=== PATIENT | female | born 2000 | race Caucasian/White ===

== ENCOUNTER 2023-10-08 08:32 | Emergency (ER) | payer OTHER, SELFPAY ==
[2023-10-08 08:36] VITALS: BP 142/90
--- NOTE | 2023-10-08 08:57 | ED.GENMED ---
History of Present Illness
<Dariel Schulte PA-C - Last Filed: 10/08/23 08:59>
General
Chief Complaint: Urinary Symptoms
Source: patient
Exam Limitations: none
Time Seen by Provider: 10/08/23 08:41
Travel History
Have you had any contact with someone who has COVID-19?: No
Do you have any symptoms of coronavirus? Fever > 100 degrees, chills, cough, shortness of breath, sore throat, loss of taste or smell, muscle aches, or headache?: No
History of Present Illness
History of Present Illness:
23-year-old otherwise healthy female presents complaining of hematuria and passing clots. She had a breast reduction surgery performed was 3 days ago at [facility]. She had a catheter during the procedure. Yesterday she noticed she started
peeing blood. She is passing clots as well. She notes a burning when she goes. She is going more frequently. She feels as though she is emptying her bladder when she goes. She denies any flank pain. No fever. She has been on an antibiotic
since the surgery but she is not sure which 1. She was seen at [facility] yesterday in their ER and they took a urinalysis but did not change any treatment otherwise. She tried calling them again today and there was no response and she
presents here.
Past History
<Dariel Schulte PA-C - Last Filed: 10/08/23 08:59>
Past History
ED Past Medical History: None
ED Past Surgical History: None
Phy Exam
<Dariel Schulte PA-C - Last Filed: 10/08/23 08:59>
Physical Exam
Physical Exam:
General: Well-appearing female no acute respiratory distress
HEENT: Normocephalic atraumatic
Heart: Regular rate and rhythm no murmurs
Lungs: Clear to auscultation bilaterally no wheezing
Abdomen is soft slightly tender in the suprapubic region no costovertebral angle tenderness. No guarding or rebound normal bowel sounds
Extremities: No cyanosis
Course
<Dariel Schulte PA-C - Last Filed: 10/08/23 08:59>
Orders/Labs/Results
Orders:
Orders
10/08/23 08:41
Test Result ONCE
10/08/23 08:48
HCG, Urine Qualitative Screen Urgent
Date Specimen was Collected: 10/08/23
Time Specimen was Collected: 08:41
Urinalysis Reflex To Culture Urgent
Date Specimen was Collected: 10/08/23
Time Specimen was Collected: 08:41
Urine Microscopic Reflex Cult Urgent
Urine Culture Urgent
JASMIN Source: U
Specimen Description:
Date Specimen was Collected: 10/08/23
Time Specimen was Collected: 08:41
10/08/23 08:56
US Renal With Bladder Urgent
Comment:
Reason For Exam: hematuria
10/08/23 08:57
Bladder Scan- Treatment ONCE
10/08/23 09:09
0.9% Sodium Chloride 1000 ml [Nss] 1,000 ml IV BOLUS
10/08/23 09:16
Complete Blood Count/With Diff Urgent
Comprehensive Metabolic Panel Urgent
10/08/23 12:57
Add On - Microbiology Urgent
Tests Added?: urine culture
Orthostatic VS- Treatment ONCE
Abnormal Lab Results
10/08/23 10/08/23
08:48 09:16
RBC 3.71 L 10^6/uL
(4.20-5.40)
Hgb 10.6 L g/dL
(12.0-16.0)
Hct 32.7 L %
(37.0-47.0)
MCHC 32.4 L g/dL
(33.0-37.0)
Absolute Monos (auto) 0.8 H 10^3/uL
(0.1-0.6)
Lymphocytes % 14.4 L %
(20.5-51.1)
Monocytes % 9.5 H %
(1.7-9.3)
Carbon Dioxide 21 L mmol/L
(22-30)
Glucose 109 H mg/dl
(70-99)
Ur Occult Blood Reflex 4+ A
(Negative)
Leukocyte Esterase Rfl 2+ A
(Negative)
Urine RBC >100 A /HPF
(0-2)
Urine Bacteria (Reflex) Few A
(Negative)
10/08/23 09:16
10/08/23 09:16
Vital Signs
Initial and Last Documented VS:
Initial Vital Signs
Temp Pulse Resp BP Pulse Ox
98.1 F 104 16 142/90 98
10/08/23 08:36 10/08/23 08:36 10/08/23 08:36 10/08/23 08:36 10/08/23 08:36
Last Documented Vital Signs
Temp Pulse Resp BP Pulse Ox
98.1 F 76 17 128/80 99
10/08/23 08:36 10/08/23 10:40 10/08/23 10:40 10/08/23 10:40 10/08/23 10:40
<Deanna Melton, SANITATION ENGINEER - Last Filed: 10/08/23 20:39>
Orders/Labs/Results
Orders:
Orders
10/08/23 08:41
Test Result ONCE
10/08/23 08:48
HCG, Urine Qualitative Screen Urgent
Date Specimen was Collected: 10/08/23
Time Specimen was Collected: 08:41
Urinalysis Reflex To Culture Urgent
Date Specimen was Collected: 04/07/24
Time Specimen was Collected: 08:41
Urine Microscopic Reflex Cult Urgent
Urine Culture Urgent
JASMIN Source: U
Specimen Description:
Date Specimen was Collected: 10/08/23
Time Specimen was Collected: 08:41
10/08/23 08:56
US Renal With Bladder Urgent
Comment:
Reason For Exam: hematuria
10/08/23 08:57
Bladder Scan- Treatment ONCE
10/08/23 09:09
0.9% Sodium Chloride 1000 ml [Nss] 1,000 ml IV BOLUS
10/08/23 09:16
Complete Blood Count/With Diff Urgent
Comprehensive Metabolic Panel Urgent
10/08/23 12:57
Add On - Microbiology Urgent
Tests Added?: urine culture
Orthostatic VS- Treatment ONCE
Abnormal Lab Results
10/08/23 10/08/23
08:48 09:16
RBC 3.71 L 10^6/uL
(4.20-5.40)
Hgb 10.6 L g/dL
(12.0-16.0)
Hct 32.7 L %
(37.0-47.0)
MCHC 32.4 L g/dL
(33.0-37.0)
Absolute Monos (auto) 0.8 H 10^3/uL
(0.1-0.6)
Lymphocytes % 14.4 L %
(20.5-51.1)
Monocytes % 9.5 H %
(1.7-9.3)
Carbon Dioxide 21 L mmol/L
(22-30)
Glucose 109 H mg/dl
(70-99)
Ur Occult Blood Reflex 4+ A
(Negative)
Leukocyte Esterase Rfl 2+ A
(Negative)
Urine RBC >100 A /HPF
(0-2)
Urine Bacteria (Reflex) Few A
(Negative)
10/08/23 09:16
10/08/23 09:16
Vital Signs
Initial and Last Documented VS:
Initial Vital Signs
Temp Pulse Resp BP Pulse Ox
98.1 F 104 16 142/90 98
10/08/23 08:36 10/08/23 08:36 10/08/23 08:36 10/08/23 08:36 10/08/23 08:36
Last Documented Vital Signs
Temp Pulse Resp BP Pulse Ox
98.1 F 76 17 128/80 99
10/08/23 08:36 10/08/23 10:40 10/08/23 10:40 10/08/23 10:40 10/08/23 10:40
<Dariel Schulte PA-C - Last Filed: 10/08/23 08:59>
MDM/Problems Addressed
Differential Diagnosis Includes:
Hematuria. Question possible cystitis or localized irritation from recent instrumentation. Will check postvoid residual ultrasound kidneys and bladder check labs and urinalysis.
<Deanna Melton NP - Last Filed: 10/08/23 20:39>
MDM/Problems Addressed
MDM/Problems Addressed:
12:31 PM: Assumed care from ARCHANA Real
23-year-old otherwise healthy female presents complaining of hematuria and passing clots. She had a breast reduction surgery performed was 3 days ago at [facility]. She had a catheter during the procedure. Yesterday she noticed she started
peeing blood. She is passing clots as well. She notes a burning when she goes. She is going more frequently. She feels as though she is emptying her bladder when she goes. She denies any flank pain. No fever. She has been on an antibiotic
since the surgery but she is not sure which 1. She was seen at [facility] yesterday in their ER and they took a urinalysis but did not change any treatment otherwise. She tried calling them again today and there was no response and she
presents here.
CBC: Hemoglobin 10.6 (was 11.6 09/25)
CMP: No clinically significant abnormality
UA: Greater than 100 RBCs, 2+ leukocytes, few bacteria, negative nitrites
hCG negative
Spoke with pt's pharmacy, she is on Levaquin 500 mg daily x 7 days
Explained to pt and parents, no worrisome findings, Hgb a little lower, pt showed me picture of recent urination here: toilet water clear, few tiny red specks, her pad from earlier was 1/2 covered with red blood
Bleeding not likely (but remotely possible) menstrual as she had her period last week,
Urine neg for infection, ordered urine culture.
Pt states she feels like she will faint at times
Orthostatics negative.
Instructed to drink plenty of fluids, rest, she has a follow-up appointment with her surgeon in 2 days,
Return here if chance red blood turns the toilet water completely red, soaking more than 1 pad an hour with blood,
<Deanna Melton NP - Last Filed: 10/08/23 20:39>
*Critical Care Note
Total Time (30-74mins, 75-104mins- exclusive of procedures): Not Applicable
ED Attending Note
<Dariel Schulte PA-C - Last Filed: 10/08/23 08:59>
-
Portions of this chart may have been created with voice recognition software.� Occasional wrong word or��sound alike� substitutions may have occurred due to the inherent limitations of voice recognition software.
Discharge Plan
Departure
Patient Disposition: Home (Routine Discharge)
Date of Disposition: 10/08/23
Time of Disposition: 13:16
Patient with high blood pressure during this ER visit?: No
Condition: Good
Discharge Problem:
Hematuria due to acute cystitis
Instructions: Blood in the Urine (Hematuria), Adult (DC), Acute Cystitis (DC)
Prescriptions:
No Action
omeprazole 40 mg capsule,delayed release(DR/EC)
40 mg PO DAILY Qty: 14 0RF
penicillin V potassium 500 mg tablet
500 mg PO BID Qty: 20 0RF
Referrals:
Ethel Wallace DO [Active] - Next open appointment
Evon Black CRNP [Family Provider] -
Activity Restrictions/Additional Instructions:
As we discussed, you may have hemorrhagic cystitis from bladder irritation.
There is no sign of worrisome amount of bleeding at this time. Your hemoglobin is slightly lower but nothing indicating need for blood transfusion or hospitalization.
Drink at least eight 8 ounce glasses of water daily
Your urine should eventually clear up
Return here immediately for soaking more than 1 sanitary pad per hour, fever above 100.5, vomiting, abdominal pain or feeling sicker in any way.
Ask your surgeon if you can have a repeat Hgb test if your still bleeding significantly when you see him in 2 days.
Follow-up with the urologist if your urine has not cleared by Monday.
Interventions
Interventions:
*Risk Screen - Suicide Last Done: 10/08/23 08:51
*General Assessment Last Done: 10/08/23 08:51
*Neglect/Abuse Screening Last Done: 10/08/23 08:51
*ED COVID-19 Vaccine History Last Done: 10/08/23 08:36
*Nursing Disposition Last Done: 10/08/23 13:26
ED-Female Genitourinary Assessment Last Done: 10/08/23 08:51
Discharge Date and Time
Discharge Date/Time: 10/08/23 13:31
Print Language: SETSWANA
[2023-10-08 09:07] VITALS: BMI 30.7
[2023-10-08] MEDS: NSS 1000 IV (09:10)
[2023-10-08 09:22] LABS: % Basophils 0.2 % (0-2); % Eosinophils 0.7 % (0-6); % Immature Granulocytes 0.5 % (0-0.5); % Lymphocytes 14.4 % (20.5-51.1); % Monocytes 9.5 % (1.7-9.3); % Neutrophils 74.7 % (42.2-75.2); Absolute Eosinophils 0.1 10^3/uL (0-0.7); Absolute Lymphocytes 1.3 10^3/uL (1.2-3.4); Absolute Monocytes 0.8 10^3/uL (0.1-0.6); Absolute Neutrophils 6.5 10^3/uL (1.4-6.5); Hematocrit 32.7 % (37.0-47.0); Hemoglobin 10.6 g/dL (12.0-16.0); Mean Corp Hgb Conc. 32.4 g/dL (33.0-37.0); Mean Corpuscular Hgb 28.6 pg (27.0-31.0); Mean Corpuscular Volume 88.1 fL (81.0-99.0); Mean Platelet Volume 10.4 fL (7.4-10.4); Nucleated Red Blood Cells % 0 %; Platelet Count 342 10^3/uL (130-400); Red Blood Cell Count 3.71 10^6/uL (4.20-5.40); Red Cell Dist. Width 14.3 % (11.5-14.5); White Blood Cell Count 8.7 10^3/uL (4.8-10.8)
[2023-10-08 09:26] LABS: Urine Albumin Trace (Neg - Trace); Urine Bilirubin Negative (Negative); Urine Character Slightly Cloudy (Clear); Urine Glucose Negative (Negative); Urine Ketone Negative (Negative); Urine Leukocyte 2+ (Negative); Urine Nitrite Negative (Negative); Urine Occult Blood 4+ (Negative); Urine Urobilinogen Negative (Neg - 1+)
[2023-10-08 09:35] LABS: HCG, Urine Qualitative Screen Negative; Urine Color Pink
[2023-10-08 09:37] LABS: ALT (SGPT) 20 U/L (0-35); AST (SGOT) 23 U/L (14-36); Albumin 4.1 g/dl (3.5-5.0); Alkaline Phosphatase 92 U/L (38-126); Blood Urea Nitrogen 9 mg/dl (7-17); Calcium 9.8 mg/dl (8.4-10.2); Carbon Dioxide 21 mmol/L (22-30); Chloride 106 mmol/L (98-107); Estimated Creatinine Clearance > 125 ml/min; Glucose 109 mg/dl (70-99); Potassium 4.2 mmol/L (3.5-5.1); Sodium 138 mmol/L (135-145); Total Bilirubin 0.4 mg/dl (0.2-1.3); Total Protein 6.9 g/dl (6.3-8.2); eGFR > 60.00
[2023-10-08 09:39] VITALS: BP 118/83
[2023-10-08 09:44] LABS: Urine Bacteria Few (Negative); Urine Red Blood Cell >100 /HPF (0-2)
[2023-10-08 10:40] VITALS: BP 128/80
[2023-10-08 13:15] VITALS: BP 127/86; BP 131/82; BP 141/86; PULSE 81; PULSE 84; PULSE 91
== END 2023-10-08 13:31 | disposition home or self-care (01) ==
LOC: EMR 08:32
PROVIDERS: Physician Assistant; EMERGENCY PHYSICIAN Emergency Medicine; FAMILY PHYSICIAN Nurse Practitioner Family
DX: N30.01 Acute cystitis with hematuria (principal)
CPT/HCPCS: 99284; 96360; 51798; 76770; 80053; 81003; 81015; 81025; 85025; 87086

== ENCOUNTER 2023-10-10 19:16 | Emergency (ER) | payer OTHER, SELFPAY ==
[2023-10-10 19:18] VITALS: BP 132/93
[2023-10-10 21:11] LABS: Urine Albumin 1+ (Neg - Trace); Urine Bilirubin 1+ (Negative); Urine Character Slightly Cloudy (Clear); Urine Color Amber; Urine Glucose Negative (Negative); Urine Ketone Trace (Negative); Urine Leukocyte 1+ (Negative); Urine Nitrite Positive (Negative); Urine Occult Blood 4+ (Negative); Urine Specific Gravity 1.025 (<1.030); Urine Urobilinogen 1+ (Neg - 1+)
[2023-10-10 21:20] LABS: Urine Red Blood Cell >100 /HPF (0-2)
[2023-10-10 21:21] LABS: Urine Bacteria Few (Negative)
[2023-10-10] MEDS: NSS 1000 IV (22:24)
[2023-10-10 22:26] LABS: % Basophils 0.5 % (0-2); % Eosinophils 1.6 % (0-6); % Immature Granulocytes 0.3 % (0-0.5); % Lymphocytes 27.9 % (20.5-51.1); % Monocytes 8.5 % (1.7-9.3); % Neutrophils 61.2 % (42.2-75.2); Absolute Eosinophils 0.1 10^3/uL (0-0.7); Absolute Lymphocytes 2.4 10^3/uL (1.2-3.4); Absolute Monocytes 0.7 10^3/uL (0.1-0.6); Absolute Neutrophils 5.3 10^3/uL (1.4-6.5); Hematocrit 30.2 % (37.0-47.0); Hemoglobin 10.1 g/dL (12.0-16.0); Mean Corp Hgb Conc. 33.4 g/dL (33.0-37.0); Mean Corpuscular Hgb 28.7 pg (27.0-31.0); Mean Corpuscular Volume 85.8 fL (81.0-99.0); Mean Platelet Volume 10.5 fL (7.4-10.4); Nucleated Red Blood Cells % 0 %; Platelet Count 412 10^3/uL (130-400); Red Blood Cell Count 3.52 10^6/uL (4.20-5.40); Red Cell Dist. Width 14.4 % (11.5-14.5); White Blood Cell Count 8.7 10^3/uL (4.8-10.8)
[2023-10-10 22:36] LABS: HCG, Serum Qualitative Screen Negative
[2023-10-10 22:40] LABS: ALT (SGPT) 20 U/L (0-35); AST (SGOT) 24 U/L (14-36); Alkaline Phosphatase 96 U/L (38-126); Blood Urea Nitrogen 18 mg/dl (7-17); Calcium 9.2 mg/dl (8.4-10.2); Carbon Dioxide 22 mmol/L (22-30); Chloride 108 mmol/L (98-107); Glucose 91 mg/dl (70-99); Potassium 4.6 mmol/L (3.5-5.1); Sodium 135 mmol/L (135-145); Total Bilirubin 0.4 mg/dl (0.2-1.3); Total Protein 6.9 g/dl (6.3-8.2); eGFR > 60.00
[2023-10-10 23:00] VITALS: BP 111/77
--- NOTE | 2023-10-10 23:23 | ED.GENMED ---
History of Present Illness
<Gamaliel Nunes, DO - Last Filed: 10/12/23 06:41>
General
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
Source: patient
Exam Limitations: none
Time Seen by Provider: 10/10/23 21:21
Nursing documentation reviewed up to this point in time: agreed with
Travel History
Have you had any contact with someone who has COVID-19?: No
Do you have any symptoms of coronavirus? Fever > 100 degrees, chills, cough, shortness of breath, sore throat, loss of taste or smell, muscle aches, or headache?: No
History of Present Illness
History of Present Illness:
23-year-old female presents emergency department due to hematuria. She also has diarrhea after taking antibiotics. She reports lower abdominal pain rating to the right lower back. Recent catheter for breast reduction surgery. She is taking
Levaquin
Past History
<Gamaliel Nunes, DO - Last Filed: 10/12/23 06:41>
Past History
ED Past Medical History: None
ED Past Surgical History: Other (Breast reduction)
Social History
Tobacco: Vaping
Alcohol: None
Drug: None
Living: with family
Review of Systems
<Gamaliel Nunes, DO - Last Filed: 10/12/23 06:41>
Review of Systems
Allergies reviewed?: Yes
All Other Systems: Not applicable
Constitutional: Reports no symptoms
EENT: Reports no symptoms
Respiratory: Reports no symptoms
Cardiac: Reports no symptoms
ABD/GI: Reports no symptoms
: Reports flank pain and bleeding
Musculoskeletal: Reports no symptoms
Skin: Reports no symptoms
Neurological: Reports no symptoms
Endocrine: Reports no symptoms
Hematologic/Lymphatic: Reports no symptoms
Psychiatric: Reports no symptoms
Phy Exam
<Gamaliel Nunes, DO - Last Filed: 10/12/23 06:41>
Physical Exam
Physical Exam:
Physical Exam
General: no apparent distress, not acutely ill
Neck: supple. no meningeal signs. normal posterior pharynx
Heart: s1/s2 regular rate and rhythm, no murmur. equal radial
pulses.
HEENT: Pupils equal round reactive to light, EOMI
Lungs: no acute respiratory distress. clear bilaterally
Abdomen: normal bowel sounds. not tender. Mild right CVAT
Neuro: alert and oriented. no focal neurological deficits cranial nerves II through XII intact
Skin: no rash
Psychiatric: well kept. interactive and cooperative
Extremities: no edema. no calf tenderness. negative homans. good distal pulses
Course
<Gamaliel Nunes, DO - Last Filed: 10/12/23 06:41>
Orders/Labs/Results
Orders:
Orders
10/10/23 19:22
IV Insert/Care/Rem.- Treatment PRN
Test Result ONCE
10/10/23 21:02
Urinalysis Reflex To Culture Urgent
Date Specimen was Collected: 10/10/23
Time Specimen was Collected: 19:22
Urine Microscopic Reflex Cult Urgent
Urine Culture Urgent
JASMIN Source: U
Specimen Description:
Date Specimen was Collected: 10/10/23
Time Specimen was Collected: 19:22
10/10/23 21:35
0.9% Sodium Chloride 1000 ml [Nss] 1,000 ml IV BOLUS
10/10/23 22:17
Complete Blood Count/With Diff Urgent
Comprehensive Metabolic Panel Urgent
HCG, Serum Qualitative Screen Urgent
10/11/23 00:15
CT Abd/pel Without Iv Or Oral Urgent
Reason For Exam: right flank pain, hematuria
Abnormal Lab Results
10/10/23 10/10/23
21:02 22:17
RBC 3.52 L 10^6/uL
(4.20-5.40)
Hgb 10.1 L g/dL
(12.0-16.0)
Hct 30.2 L %
(37.0-47.0)
Plt Count 412 H D 10^3/uL
(130-400)
MPV 10.5 H fL
(7.4-10.4)
Absolute Monos (auto) 0.7 H 10^3/uL
(0.1-0.6)
Chloride 108 H mmol/L
(98-107)
BUN 18 H mg/dl
(7-17)
Urine Ketones Trace A
(Negative)
Ur Occult Blood Reflex 4+ A
(Negative)
Urine Nitrite (Reflex) Positive A
(Negative)
Urine Bilirubin 1+ A
(Negative)
Leukocyte Esterase Rfl 1+ A
(Negative)
Urine RBC >100 A /HPF
(0-2)
Urine Bacteria (Reflex) Few A
(Negative)
Urine Albumin (Reflex) 1+ A
(Neg - Trace)
10/10/23 22:17
10/10/23 22:17
Vital Signs
Initial and Last Documented VS:
Initial Vital Signs
Temp Pulse Resp BP Pulse Ox
98.2 F 113 17 132/93 97
10/10/23 19:18 10/10/23 19:18 10/10/23 19:18 10/10/23 19:18 10/10/23 19:18
Last Documented Vital Signs
Temp Pulse Resp BP Pulse Ox
98.2 F 89 27 121/87 97
10/10/23 19:18 10/11/23 01:39 10/11/23 01:39 10/11/23 01:39 10/11/23 01:39
<Vinicio Villavicencio, DO - Last Filed: 10/11/23 01:23>
Orders/Labs/Results
Orders:
Orders
10/10/23 19:22
IV Insert/Care/Rem.- Treatment PRN
Test Result ONCE
10/10/23 21:02
Urinalysis Reflex To Culture Urgent
Date Specimen was Collected: 10/10/23
Time Specimen was Collected: 19:22
Urine Microscopic Reflex Cult Urgent
Urine Culture Urgent
JASMIN Source: U
Specimen Description:
Date Specimen was Collected: 10/10/23
Time Specimen was Collected: 19:22
10/10/23 21:35
0.9% Sodium Chloride 1000 ml [Nss] 1,000 ml IV BOLUS
10/10/23 22:17
Complete Blood Count/With Diff Urgent
Comprehensive Metabolic Panel Urgent
HCG, Serum Qualitative Screen Urgent
10/11/23 00:15
CT Abd/pel Without Iv Or Oral Urgent
Reason For Exam: right flank pain, hematuria
Abnormal Lab Results
10/10/23 10/10/23
21:02 22:17
RBC 3.52 L 10^6/uL
(4.20-5.40)
Hgb 10.1 L g/dL
(12.0-16.0)
Hct 30.2 L %
(37.0-47.0)
Plt Count 412 H D 10^3/uL
(130-400)
MPV 10.5 H fL
(7.4-10.4)
Absolute Monos (auto) 0.7 H 10^3/uL
(0.1-0.6)
Chloride 108 H mmol/L
(98-107)
BUN 18 H mg/dl
(7-17)
Urine Ketones Trace A
(Negative)
Ur Occult Blood Reflex 4+ A
(Negative)
Urine Nitrite (Reflex) Positive A
(Negative)
Urine Bilirubin 1+ A
(Negative)
Leukocyte Esterase Rfl 1+ A
(Negative)
Urine RBC >100 A /HPF
(0-2)
Urine Bacteria (Reflex) Few A
(Negative)
Urine Albumin (Reflex) 1+ A
(Neg - Trace)
10/10/23 22:17
10/10/23 22:17
Vital Signs
Initial and Last Documented VS:
Initial Vital Signs
Temp Pulse Resp BP Pulse Ox
98.2 F 113 17 132/93 97
10/10/23 19:18 10/10/23 19:18 10/10/23 19:18 10/10/23 19:18 10/10/23 19:18
Last Documented Vital Signs
Temp Pulse Resp BP Pulse Ox
98.2 F 89 27 121/87 97
10/10/23 19:18 10/11/23 01:39 10/11/23 01:39 10/11/23 01:39 10/11/23 01:39
<Gamaliel Nunes, DO - Last Filed: 10/12/23 06:41>
MDM/Problems Addressed
MDM/Problems Addressed:
23-year-old female with hematuria right flank pain. CT abdomen pelvis pending. Urinalysis nitrate positive, but no whites. Will likely continue Levaquin, and follow-up with primary care, if no acute findings on CT abdomen pelvis
<Gamaliel Nunes, DO - Last Filed: 10/12/23 06:41>
*Critical Care Note
Total Time (30-74mins, 75-104mins- exclusive of procedures): Not Applicable
<Vinicio Villavicencio, DO - Last Filed: 10/11/23 01:23>
Update Note
Update Note:
CT A/P W/O IV CONTRAST
IMPRESSION:
Decreased sensitivity in the evaluation of the abdominal viscera due to lack of IV contrast.
3 mm stone layering in the bladder near the left UVJ. This likely reflects a recently passed stone and may account for the reported hematuria.
No evidence of hydroureteronephrosis or obstructing stone. No signficant perinephric fat stranding.
Unremarkable CT appearance of the gallbladder, biliary tract, and pancreas.
No appendicitis or colitis.
No evidence of small bowel obstruction.
No free fluid or free air.
No AAA.
Case finalized at 105am ET.
ED Attending Note
<Gamaliel Nunes, - Last Filed: 10/12/23 06:41>
-
Portions of this chart may have been created with voice recognition software.� Occasional wrong word or��sound alike� substitutions may have occurred due to the inherent limitations of voice recognition software.
Discharge Plan
Departure
Patient Disposition: Home (Routine Discharge)
Date of Disposition: 10/11/23
Time of Disposition: 01:21
Patient with high blood pressure during this ER visit?: No
Condition: Good
Discharge Problem:
Kidney stone, Hematuria
Instructions: How to Strain Your Urine, Kidney Stone, Adult ED
Prescriptions:
No Action
omeprazole 40 mg capsule,delayed release(DR/EC)
40 mg PO DAILY Qty: 14 0RF
penicillin V potassium 500 mg tablet
500 mg PO BID Qty: 20 0RF
Referrals:
Evon Black CRNP [Family Provider] -
Activity Restrictions/Additional Instructions:
It was a pleasure meeting you and taking part in your care. We hope for your continued healing and wellness.
Please read discharge instructions in their entirety. However, they are for general education and may not describe your exact diagnosis at discharge. Information on your ER visit and medical conditions were discussed with you along with appropriate
follow up information...
If indicated, please take your medications as instructed and indicated on discharge paperwork.
Please schedule a follow up appointment as directed. Call to schedule an appointment
Please return to the emergency department with ANY change in, persisting, or worsening of symptoms. If any of your symptoms do not improve, or persist, or become more severe within 6-12 hours, please return to the emergency department for further
care.
Please return to the emergency department if you develop a headache, neck pain/stiffness, fever greater than 100.4F, chest pain, shortness of breath, persistent nausea, vomiting, slurred speech, difficulty walking, numbness/tingling, weakness, signs
of infection or any other symptoms that are worrisome to you.
If you have any questions or concerns please do not hesitate to call the Hospital at or E-mail me directly at [email or web address]
Interventions
Interventions:
*Risk Screen - Suicide Last Done: 10/10/23 19:18
*General Assessment Last Done: 10/10/23 19:18
*Neglect/Abuse Screening Last Done: 10/10/23 19:18
ED- Fall Risk Assessment Last Done: 10/11/23 01:40
*ED COVID-19 Vaccine History Last Done: 10/10/23 19:18
*Nursing Disposition Last Done: 10/11/23 01:40
ED-Female Genitourinary Assessment Last Done: 10/10/23 21:44
Discharge Date and Time
Discharge Date/Time: 10/11/23 01:47
Print Language: VIETNAMESE
[2023-10-11] VITALS: BP 112/96
[2023-10-11 01:39] VITALS: BP 121/87
== END 2023-10-11 01:47 | disposition home or self-care (01) ==
LOC: EMR 19:16
PROVIDERS: EMERGENCY PHYSICIAN Emergency Medicine; FAMILY PHYSICIAN Nurse Practitioner Family
DX: N20.0 Calculus of kidney (principal); R19.7 Diarrhea, unspecified; F17.290 Nicotine dependence, other tobacco product, uncomplicated; Z98.890 Other specified postprocedural states
CPT/HCPCS: 99284; 96360; 74176; 80053; 81003; 81015; 84703; 85025; 87086

== ENCOUNTER 2023-12-11 19:27 | Inpatient (IN) | payer OTHER, SELFPAY ==
[2023-12-11] VITALS (7 sets, daily range): BP systolic 100–119; BP diastolic 55–65; BMI 29.5
[2023-12-11 14:42] LABS: % Basophils 0.2 % (0-2); % Immature Granulocytes 0.9 % (0-0.5); % Lymphocytes 2.5 % (20.5-51.1); % Monocytes 3.4 % (1.7-9.3); Absolute Basophils 0.1 10^3/uL (0-0.2); Absolute Immature Granulocytes 0.2 10^3/uL (0-0.05); Absolute Lymphocytes 0.6 10^3/uL (1.2-3.4); Absolute Monocytes 0.9 10^3/uL (0.1-0.6); Absolute Neutrophils 23.8 10^3/uL (1.4-6.5); Hematocrit 35.9 % (37.0-47.0); Hemoglobin 11.7 g/dL (12.0-16.0); Mean Corp Hgb Conc. 32.6 g/dL (33.0-37.0); Mean Corpuscular Hgb 29.1 pg (27.0-31.0); Mean Corpuscular Volume 89.3 fL (81.0-99.0); Nucleated Red Blood Cells % 0 %; Platelet Count 355 10^3/uL (130-400); Red Blood Cell Count 4.02 10^6/uL (4.20-5.40); Red Cell Dist. Width 14.6 % (11.5-14.5); White Blood Cell Count 25.6 10^3/uL (4.8-10.8)
[2023-12-11 14:50] LABS: HCG, Serum Qualitative Screen Negative
[2023-12-11 14:53] LABS: ALT (SGPT) 28 U/L (0-35); AST (SGOT) 30 U/L (14-36); Albumin 4.6 g/dl (3.5-5.0); Alkaline Phosphatase 109 U/L (38-126); Blood Urea Nitrogen 13 mg/dl (7-17); Calcium 9.4 mg/dl (8.4-10.2); Carbon Dioxide 21 mmol/L (22-30); Chloride 102 mmol/L (98-107); Glucose 103 mg/dl (70-99); Potassium 4.1 mmol/L (3.5-5.1); Sodium 136 mmol/L (135-145); Total Bilirubin 0.5 mg/dl (0.2-1.3); Total Protein 7.7 g/dl (6.3-8.2); eGFR > 60.00
[2023-12-11 15:04] LABS: Lactic Acid 0.9 mmol/L (0.7-2.0)
[2023-12-11] MEDS: TYLENOL 650 MG PO ×2 (15:22→19:51)
[2023-12-11] MEDS: NSS 500 IV ×2 (15:22→17:11)
[2023-12-11 16:01] LABS: COVID-19 Antigen Negative (Negative)
[2023-12-11] MEDS: BENADRYL 25 MG IV (17:11)
[2023-12-11 17:34] LABS: Urine Albumin 1+ (Neg - Trace); Urine Bilirubin 1+ (Negative); Urine Character Slightly Cloudy (Clear); Urine Color Yellow; Urine Glucose Negative (Negative); Urine Ketone 3+ (Negative); Urine Leukocyte 2+ (Negative); Urine Nitrite Negative (Negative); Urine Occult Blood 4+ (Negative); Urine Specific Gravity 1.025 (<1.030); Urine Urobilinogen Negative (Neg - 1+)
[2023-12-11 17:44] LABS: Urine Bacteria Many (Negative); Urine Red Blood Cell 70-80 /HPF (0-2); Urine Squamous Cell 0-2 /LPF (Few); Urine White Cell 21-25 /HPF (0-5)
[2023-12-11] MEDS: MOTRIN 400 MG PO (18:00)
--- NOTE | 2023-12-11 18:21 | ED.GENMED ---
History of Present Illness
General
Chief Complaint: Fever
Source: patient and family
Exam Limitations: none
Time Seen by Provider: 12/11/23 14:33
Nursing documentation reviewed up to this point in time: agreed with
Travel History
Have you had any contact with someone who has COVID-19?: No
Do you have any symptoms of coronavirus? Fever > 100 degrees, chills, cough, shortness of breath, sore throat, loss of taste or smell, muscle aches, or headache?: No
History of Present Illness
History of Present Illness:
Patient status post breast reduction surgery in October 2023 at [facility], presents to ED secondary to sudden onset of fever, headache, nasal congestion, sore throat, and redness noted over her breast this morning. Patient was seen by her
surgeon last week as a follow-up, and was told that her surgical site has healed appropriately. Denies coughing. Denies vomiting or diarrhea. Patient denies any pain with redness noted over her breasts but reports itching sensation. Of note,
patient yesterday, applied antibiotic ointment called Dalacin purchased in [place]. Denies sick contact. Denies recent travel.
Past History
Past History
ED Past Medical History: None
ED Past Surgical History: Other (Breast reduction)
Social History
Tobacco: Vaping
Alcohol: None
Drug: None
Living: with family
Review of Systems
Review of Systems
Allergies reviewed?: Yes
All Other Systems: ROS reviewed and negative except as documented in HPI and ROS
Constitutional: Reports fever and chills
EENT: Reports sore throat and other (nasal congestion)
Cardiac: Reports no symptoms
ABD/GI: Reports no symptoms
: Reports no symptoms
Musculoskeletal: Reports no symptoms; Denies neck pain
Skin: Reports no symptoms
Neurological: Reports headache
Phy Exam
Physical Exam
Physical Exam:
Physical Exam
General: mild distress, not acutely ill. febrile. tachycardic
Head: nc/at. eomi
Neck: supple. no meningeal signs. no lymphadenopathy.
Throat: no exudates.
Heart: tachycardic, no murmur. equal radial pulses.
Lungs: no acute respiratory distress. clear bilaterally
Abdomen: normal bowel sounds. not tender.
Neuro: alert and oriented. no focal neurological deficits
Skin: erythema noted over b/l breasts with well healing surgical scar, without any active drainage.
Psychiatric: well kept. interactive and cooperative
Extremities: no edema. no calf tenderness.
Course
Orders/Labs/Results
Orders:
Orders
12/11/23 14:27
Test Result ONCE
12/11/23 14:31
CMP [Comprehensive Metabolic Panel] Urgent
Complete Blood Count/With Diff Urgent
HCG, Serum Qualitative Screen Urgent
Lactic Acid Urgent
Blood Culture Routine
JASMIN Source: Blood/Venous
Specimen Description:
Date Specimen was Collected: 12/11/23
Time Specimen was Collected: 14:20
12/11/23 15:12
0.9% Sodium Chloride 500 ml [Nss] 500 ml IV BOLUS
Acetaminophen [Tylenol] 650 mg PO NOW STA
12/11/23 15:24
COVID-19 Antigen Urgent
Source: Nasal Swab
Influenza A+B Rapid Molecular Urgent
JASMIN Source: Nasal Swab
Specimen Description:
12/11/23 16:59
0.9% Sodium Chloride 500 ml [Nss] 500 ml IV BOLUS
Diphenhydramine [Benadryl] 25 mg IV NOW STA
12/11/23 17:10
Urinalysis Reflex To Culture Urgent
Date Specimen was Collected: 12/11/23
Time Specimen was Collected: 16:28
Urine Microscopic Reflex Cult Urgent
Urine Culture Urgent
JASMIN Source: U
Specimen Description:
Date Specimen was Collected: 12/11/23
Time Specimen was Collected: 16:28
12/11/23 17:57
Ibuprofen [Motrin] 400 mg PO NOW STA
12/11/23 18:18
CefTRIAXone [Rocephin] 1,000 mg IV NOW STA
12/11/23 18:54
Admit/Transfer Patient As Directed
Co-Sign Provider:
Level of Care: Inpatient admission
Assign to:: Medical/Surgical
Physician / Group: Ketan whitakerists
Diagnosis: sepsis UTI
Reason for Hospitalization: sepsis UTI - IVF and IV Abx
Expected length of stay greater than two midnights?: Yes
ELOS- Estimated Length of Stay in days: 2
I certify the patient meets the requirements for IP care: Yes
Code Status As Directed
Resuscitation Status: Full Code
12/11/23 18:59
Prednisone [Deltasone] 40 mg PO NOW STA
12/11/23 18:59
CT Abd/pel Without Iv Or Oral Routine
Comment:
Reason For Exam: sepsis/UTI, prior hx of stone
12/11/23 19:[address] Non Medication Order As Directed
Physician Order: please scott borders of redness of breast/upper abdomen with marker
Above order entered?: Yes
12/11/23 19:44
Acetaminophen [Tylenol] 650 mg PO Q4HPRN PRN
Abnormal Lab Results
12/11/23 12/11/23
14:31 17:10
WBC 25.6 H 10^3/uL
(4.8-10.8)
RBC 4.02 L 10^6/uL
(4.20-5.40)
Hgb 11.7 L g/dL
(12.0-16.0)
Hct 35.9 L %
(37.0-47.0)
MCHC 32.6 L g/dL
(33.0-37.0)
RDW 14.6 H %
(11.5-14.5)
Abs Immat Gran (auto) 0.2 H 10^3/uL
(0-0.05)
Absolute Neuts (auto) 23.8 H 10^3/uL
(1.4-6.5)
Absolute Lymphs (auto) 0.6 L 10^3/uL
(1.2-3.4)
Absolute Monos (auto) 0.9 H 10^3/uL
(0.1-0.6)
Immature Gran % 0.9 H %
(0-0.5)
Neutrophils % 93.0 H %
(42.2-75.2)
Lymphocytes % 2.5 L %
(20.5-51.1)
Carbon Dioxide 21 L mmol/L
(22-30)
Glucose 103 H mg/dl
(70-99)
Urine Ketones 3+ A
(Negative)
Ur Occult Blood Reflex 4+ A
(Negative)
Urine Bilirubin 1+ A
(Negative)
Leukocyte Esterase Rfl 2+ A
(Negative)
Urine RBC 70-80 A /HPF
(0-2)
Urine WBC (Reflex) 21-25 A /HPF
(0-5)
Urine Bacteria (Reflex) Many A
(Negative)
Urine Albumin (Reflex) 1+ A
(Neg - Trace)
12/11/23 14:31
12/11/23 14:31
Vital Signs
Initial and Last Documented VS:
Initial Vital Signs
Temp Pulse Resp BP Pulse Ox
100.8 F H 122 20 100/59 96
12/11/23 13:01 12/11/23 13:01 12/11/23 13:01 12/11/23 13:01 12/11/23 13:01
Last Documented Vital Signs
Temp Pulse Resp BP Pulse Ox
103 F H 108 30 119/61 97
12/11/23 19:16 12/11/23 20:00 12/11/23 20:00 12/11/23 19:00 12/11/23 20:00
MDM/Problems Addressed
MDM/Problems Addressed:
Discussed with Dr. Garcia, plastic surgeon at [facility] who informs me that the surgical site last week appeared well. Highly doubtful that rash represents an infection, more likely an acute contact dermatitis.
Significant leukocytosis noted with abnormal urinalysis. Patient will be started on IV antibiotics and admitted for further evaluation/treatment.
Blood culture pending.
*Critical Care Note
Total Time (30-74mins, 75-104mins- exclusive of procedures): Not Applicable
ED Attending Note
-
Portions of this chart may have been created with voice recognition software.� Occasional wrong word or��sound alike� substitutions may have occurred due to the inherent limitations of voice recognition software.
Discharge Plan
Departure
Patient Disposition: Admit
Date of Disposition: 12/11/23
Time of Disposition: 18:27
Presentation/result/management discussed w/ accepting MD/DO: Hospitalist
Discharge Problem:
Sepsis, UTI (urinary tract infection), Rash
Interventions
Interventions:
*Risk Screen - Suicide Last Done: 12/11/23 20:02
*General Assessment Last Done: 12/11/23 14:22
*Neglect/Abuse Screening Last Done: 12/11/23 13:01
ED- Fall Risk Assessment Last Done: 12/11/23 14:22
*ED COVID-19 Vaccine History Last Done: 12/11/23 20:02
*Nursing Disposition Last Done: 12/11/23 20:20
ED-Skin Assessment Last Done: 12/11/23 14:22
Discharge Date and Time
Discharge Date/Time: 12/11/23 20:21
[2023-12-11] MEDS: ROCEPHIN 1000 MG IV (18:35)
--- NOTE | 2023-12-11 18:41 | HPS.HSE ---
Family Physician
-
Family Physician: JERRY David
Chief Complaint
-
Fever
History of Present Illness
23 y/o F, hx of breast reduction (Dr. Aisha Silva, Plastics) in October 2023 presents to ER for fever, headaches. She reports symptoms began last evening. Associated symptoms include sore throat and redness across the breast. Patient was seen by
surgeon last week and everything was normal then. She reports last evening a fever began 102F. She reports urinary frequency but does not recall pain or cloudy appearance. No SOB, no CP. No GI complaints. No flank pain.
Regarding breast redness, she recently started topical clindamycin (obtained in [place]) for what family thought was a slight crack near the R nipple. Redness started last evening and progressed. Not itching. No breast pain/swelling. No drainage.
ER spoke to Dr. Leonard and he felt less likely breast infection and more likely dermatitis from topical clindamycin; he did not prescribe it and therefore recommends stopping it.
Medical History
Past Medical History
Past Medical History: Reports None
Past Surgical History: Reports Other (Breast reduction (Dr. Aisha Silva, Plastics) in October 2023)
Social History
Tobacco: Vaping
Alcohol: None
Drug: None
Personal: Single
Living: With Family
Family History
Family History: Not pertinent
Allergies / Home Medications
Allergies reflects when Allergies were last updated in [facility].
Home Medications with original date entered in [facility]
Allergy/Medication List:
Allergies
Allergy/AdvReac Type Severity Reaction Status Date / Time
No Known Allergies Allergy Verified 12/11/23 13:01
Home Medications
acetaminophen 500 mg tablet (Tylenol Extra Strength) 1,000 mg PO BIDPRN PRN mild pain/fever 12/11/23
aripiprazole 15 mg tablet 15 mg PO HS 12/11/23
ferrous sulfate 325 mg (65 mg iron) tablet 325 mg PO MOWEFR@0800 12/11/23
Review of Systems
-
A 12 point ROS was completed and negative except as noted: Yes
Physical Exam
Vital Signs
Vital Signs
Temp Pulse Resp BP Pulse Ox
101.3 F H 98 32 114/55 99
12/11/23 17:13 12/11/23 18:30 12/11/23 18:30 12/11/23 18:00 12/11/23 18:30
Physical Exam
General: Fever and Other (tired)
HEENT: NormoCephalic and Anicteric
Respiratory: Clear; No Wheezes or Rales
Cardiac: S1/S2 and Regular Rhythm
Breast: Other (no nipple discharge, slight skin crack around R nipple but no drainage, no tenderness, no breast edema. Skin redness bilateral breasts extending to upper abdomen)
GI: Soft and Non Tender
Genito-urinary: No costovertebral tender
Musculoskeletal: No Clubbing
Neuro: AO x 3
Hematologic/Lymphatic: No Lymphadenopathy
Psych: Calm
Laboratory Results
-
12/11/23 14:31
12/11/23 14:31
Laboratory Results
Lactic Acid 0.9 mmol/L (0.7-2.0) 12/11/23 14:31
Total Bilirubin 0.5 mg/dl (0.2-1.3) 12/11/23 14:31
AST 30 U/L (14-36) 12/11/23 14:31
ALT 28 U/L (0-35) 12/11/23 14:31
Alkaline Phosphatase 109 U/L (38-126) 12/11/23 14:31
Data Reviewed
-
Lab Data: Labs Reviewed by me
Impression/Plan
-
Assessment:
Sepsis POA (leukocytosis, fever, tachycardia)
UTI
- start sepsis protocol IVF
- start IV Rocephin, day 1 and follow cultures
- check CT A/P with prior hx of small stones
bilateral breast redness
bilateral breast reduction 10/2023
- ER spoke to Dr. Leonard and exam was normal 1 week ago
- no pain/swelling/drainage indicative of active infection
- check breast US
- seems more likely a dermatitis reaction to topical clindamycin obtained in [place], started by family. . Instructed family to stop topical clindamcyin
- start oral steroids (not IV due to concurrent sepsis) and monitor progression
- if worsening, will need breast eval
DVT ppx: SCDs
Code: Full
[2023-12-11] MEDS: DELTASONE 40 MG PO (19:10)
[2023-12-11] MEDS: ABILIFY 15 MG PO (21:05)
[2023-12-11] MEDS: NSS 1000 IV (21:06)
[2023-12-12 06:38] LABS: % Basophils 0.2 % (0-2); % Immature Granulocytes 0.9 % (0-0.5); % Monocytes 1.5 % (1.7-9.3); % Neutrophils 94.4 % (42.2-75.2); Absolute Basophils 0.1 10^3/uL (0-0.2); Absolute Immature Granulocytes 0.2 10^3/uL (0-0.05); Absolute Lymphocytes 0.8 10^3/uL (1.2-3.4); Absolute Monocytes 0.4 10^3/uL (0.1-0.6); Absolute Neutrophils 25.8 10^3/uL (1.4-6.5); Hematocrit 34.7 % (37.0-47.0); Hemoglobin 11.2 g/dL (12.0-16.0); Mean Corp Hgb Conc. 32.3 g/dL (33.0-37.0); Mean Corpuscular Hgb 28.5 pg (27.0-31.0); Mean Corpuscular Volume 88.3 fL (81.0-99.0); Mean Platelet Volume 10.2 fL (7.4-10.4); Nucleated Red Blood Cells % 0 %; Platelet Count 349 10^3/uL (130-400); Red Blood Cell Count 3.93 10^6/uL (4.20-5.40); Red Cell Dist. Width 14.7 % (11.5-14.5); White Blood Cell Count 27.4 10^3/uL (4.8-10.8)
[2023-12-12 06:45] LABS: Blood Urea Nitrogen 11 mg/dl (7-17); Calcium 9.4 mg/dl (8.4-10.2); Carbon Dioxide 19 mmol/L (22-30); Chloride 106 mmol/L (98-107); Estimated Creatinine Clearance > 125 ml/min; Glucose 124 mg/dl (70-99); Potassium 4.3 mmol/L (3.5-5.1); Sodium 138 mmol/L (135-145); eGFR > 60.00
--- NOTE | 2023-12-12 08:42 | W.PN.HOSP.TC ---
Today's Communication/Plan
-
see A/P
Assessment / Plan
Assessment / Plan
HPI: 23 y/o F, hx of breast reduction ([place], Dr. Leonard, Plastics) in October 2023 presented to ER for fever, headaches. 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 Patient was seen by surgeon the
week prior and everything was normal then. She reported a fever of 102F. She reported urinary frequency but does not recall pain or cloudy appearance.
Regarding breast redness, she recently started topical clindamycin (obtained in [place]) for what family thought was a slight crack near the R nipple. Redness started last evening and progressed. Not itching. No breast pain/swelling. No drainage.
ER spoke to Dr. Leonard and he felt less likely breast infection and more likely dermatitis from topical clindamycin; he did not prescribe it and therefore recommends stopping it.
A/P:
# Sepsis POA (leukocytosis, fever, tachycardia) with bacteremia, unclear source, UTI vs BL breast cellulitis
One set blood culture positive, follow S/S and check repeat blood culture until clearance
Cont IV Rocephin, add Doxycycline
Breast US noted cellulitis/mastitis, no evidence of abscess collection.
Stop PO prednisone
CT A/P unrevealing, No evidence for nephroureterolithiasis or hydronephrosis.
ID CS
Wound care CS
# bilateral breast reduction 10/[address] 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
DVT ppx: SCDs
Code: Full
DW mother at bedside
Anticipated Discharge: > 48 hours
Subjective/Interval History
-
Date of Service: December 12, 2023
Objective Data
-
Labs:
Laboratory Results
12/12/23
05:28
WBC 27.4 H
Hgb 11.2 L
Hct 34.7 L
Plt Count 349
Sodium 138
Potassium 4.3
Chloride 106
Carbon Dioxide 19 L
BUN 11
Creatinine 0.7
Glucose 124 H
Calcium 9.4
Vital Signs:
Vital Signs
Temp Pulse Resp BP Pulse Ox
37.1 C 93 18 111/65 95
12/11/23 23:25 12/11/23 23:25 12/11/23 23:25 12/11/23 23:25 12/11/23 23:25
I&O
12/11/23 12/12/23 12/13/23
06:59 06:59 06:59
Intake Total 1200 / 1200
Balance 1200 / 1200
Review of Systems
-
Skin: Reports Rash (BL breasts)
Physical Exam
-
General: Well Developed, Well Nourished, No Apparent Distress, Comfortable and Conversant; Negative Respiratory Distress
HEENT: Normocephalic, Atraumatic, Nose Appears Normal and Ears Appear Normal; Negative Oxygen
Respiratory: Clear to Auscultation and Non Labored Respirations; Negative Accessory Resp Muscle Use
Cardiac: Regular Rhythm and S1/S2
GI: Soft, Nontender, Nondistended and Normal Bowel Sounds
Skin: Warm, Dry and Rash (BL breasts)
Neuro: Awake, Alert, Oriented and AO x 3
Psych: Calm and Intact Judgement/Insight
Data Reviewed
-
Medical Tests (Nuc Med, Echo etc): Report Reviewed by me (breast US)
Labs: Labs Reviewed by me
[2023-12-12] MEDS: DELTASONE 40 MG PO (09:22)
--- NOTE | 2023-12-12 09:33 | PTCARENOTE ---
Assumed care of patient from previous nurse. AAOx3, complaining of pain at IV site. New IV inserted by IV nurse. Redness on chest spread slightly outside of previous markings, pt for breast US this morning. Plan of care ongoing.
[2023-12-12 10:00] VITALS: BP 120/71
[2023-12-12] MEDS: VIBRAMYCIN 100 MG PO (11:15)
--- NOTE | 2023-12-12 11:15 | WOUNDNOTE ---
MILLER RN NOTE: Patient admitted with sepsis, UTI and rash. Recent breast reduction done by Plastic surgeon Dr. Leonard in October. No open draining areas, suture lines are closed and red. I&D following and discussed with Dr. Galvan. No need for wound
care, will sign off unless needed.
--- NOTE | 2023-12-12 14:08 | CM ---
Met patient in room with her mother. Patient lives with mother, father, brother, sister in 2 level home. There are 3 steps to enter and 10 up for full bath and bedroom. THere is half bath on entry level manager. Patient is independent in home and community.
PCP Evon Black
Pharmacy. [facility],
She does not own or use any DME. NO history of SNF or VNA.
PLAN: home no needs
--- NOTE | 2023-12-12 14:25 | CON.ID ---
Consultation
-
Date/Time Consultation Requested: December 12, 2023 0958
Date/Time Consultation Performed: December 12, 2023 1425
Requesting Provider: Dr.Chen Manriquez
Performing Provider: Dr. Elayne Galvan
Reason for Consultation: Severe sepsis UTI vs breast cellulitis
Chief Complaint / Past History
Chief Complaint
Fever and breast redness
History of Present Illness
History obtained from the patient as well as from her mother at bedside. She is a 23-year-old female without significant past medical history who recently underwent bilateral breast reduction on October 05, 2023. Postop she did well. Monday night
December 09, patient developed acute onset of fever, chills and headache. the next morning she noted a rash that initially started on the right upper back then extended to her upper chest involving both breasts and upper abdomen. She presented to the
ER yesterday December 10. Rash is not itchy. In the ER her temperature was 103, white count 25. CT of abdomen pelvis unremarkable. Ultrasound of the breast consistent with cellulitis. 1 out of 1 set of admission blood culture is positive for GPC in
chains. Patient denies sore throat. She did have runny nose. Per mom, on Monday the whole family spent a day in [facility]. She did have a photo taking with a large snake wrapped around her neck. Her cousin also had an same photo with the
snake wrapped around him. The cousin did not have any incident or rash. Patient without ill contacts. 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
Past History
Additional Past Medical History:
Nephrolithiasis
Bilateral breast reduction (10/2023)
Tonsillectomy
Allergy History:
No Known Allergies Allergy (Verified 12/11/23 13:01)
Medications Reviewed: Yes
Current Antibiotics:
ceftriaxone
doxycycline
Social History
Tobacco: Vaping
Alcohol: None
Drug: None
Personal: Single
Living: With Family
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 )
Family History
Family History: Not Pertinent
Review of Systems
Review of Systems
General: Fever, Chills and Change in Appetite
HEENT: Headache; Negative Stiff Neck or Pharyngitis
Cardiovascular: Negative Chest Pain or Dyspnea
Respiratory: Negative Dyspnea or Cough
Gasteroenterology: Negative Nausea or Vomiting
Genital / Urological: Negative Dysuria or Flank Pain
Skin / Hair / Nails: Rash
All systems: All other systems were reviewed and were negative
Vital Signs
Temp Pulse Resp BP Pulse Ox
97.5 F 86 16 120/71 97
12/12/23 10:00 12/12/23 10:00 12/12/23 10:00 12/12/23 10:00 12/12/23 10:00
Selected Entries
12/11/23
19:16
Temp 103 F H
Physical Exam
Physical Exam
Constitutional: No Acute Distress and Comfortable
Eyes: No Conjunctival Hemorrhage and Sclera Anicteric
Pharynx: Benign; Negative Erythema
Cardiovascular: Regular Rate and S1/S2
Gastrointestinal: Soft, Non Tender, Non Distended and Normal Bowel Sounds
Extremities: Negative Edema
Skin: Other (Bilateral breast incisions dry, closed; no wounds. + erythema bilateral breasts extending to right posterior upper torso; upper abdomen with patchy erythema )
Neurological: AO x 3
Lab / Diagnostic Study Results
12/12/23 05:28
12/12/23 05:28
Abs Immat Gran (auto) 0.2 10^3/uL (0-0.05) H 12/12/23 05:28
Absolute Neuts (auto) 25.8 10^3/uL (1.4-6.5) H 12/12/23 05:28
Absolute Lymphs (auto) 0.8 10^3/uL (1.2-3.4) L 12/12/23 05:28
Absolute Monos (auto) 0.4 10^3/uL (0.1-0.6) 12/12/23 05:28
Absolute Basos (auto) 0.1 10^3/uL (0-0.2) 12/12/23 05:28
Immature Gran % 0.9 % (0-0.5) H 12/12/23 05:28
Neutrophils % 94.4 % (42.2-75.2) H 12/12/23 05:28
Lymphocytes % 3.0 % (20.5-51.1) L 12/12/23 05:28
Monocytes % 1.5 % (1.7-9.3) L 12/12/23 05:28
Eosinophils % 0.0 % (0-6) 12/12/23 05:28
Basophils % 0.2 % (0-2) 12/12/23 05:28
Lactic Acid 0.9 mmol/L (0.7-2.0) 12/11/23 14:31
Ur Squamous Epith Cells 0-2 /LPF (Few) 12/11/23 17:10
Microbiology Results
Micro:
12/11/23 17:10 Urine Culture - Preliminary
Urine
12/12/23 12:00 Salmonella/Shigella Culture - Pending
Feces/Stool Campylobacter Culture - Pending
Shiga Toxin Test - Pending
12/12/23 11:15 Blood Culture - Pending
Blood/Venous
12/11/23 14:31 Blood Culture - Preliminary
Blood/Venous Positive culture in progress
Gram Stain - Final
12/11/23 15:24 Influenza Types A & B (GUALBERTO) - Final
Nasal Swab Negative for Influenza A & B, NAAT
Negative results must be combined with clinical observations
and patient history.
Nucleic Acid Amplification test (NAAT)performed on the
[employer] platform.
12/12/23 CT a/p: No CT evidence for nephroureterolithiasis or hydronephrosis.
12/12/23 Breast US: Findings are consistent with cellulitis/mastitis. There is no evidence of an abscess collection.
Assessment / Plan
# Chest cellulitis
# GPC cocci and chains bacteremia (1 of 1 set bcx) - suspect Strep
# Sepsis with fever, leukocytosis
# Recent b/l breast reduction 10/05/2023
# Recent boa constrictor snake contact (photo opportunity in [facility]).
- Repeat blood cx's.
- Continue with ceftriaxone.
- DC doxycycline.
- Trend temps/wbc.
[2023-12-12 16:00] VITALS: BP 128/85
[2023-12-12] MEDS: ROCEPHIN 1000 MG IV (17:19)
[2023-12-12] MEDS: STERILE WATER FOR INJECTION 10 ML IV (17:19)
[2023-12-12] MEDS: ABILIFY 15 MG PO (21:08)
[2023-12-12] MEDS: BENADRYL 25 MG PO (21:12)
[2023-12-12 23:34] VITALS: BP 105/58
[2023-12-13 07:45] LABS: % Basophils 0.1 % (0-2); % Eosinophils 0.4 % (0-6); % Monocytes 7.4 % (1.7-9.3); % Neutrophils 76.1 % (42.2-75.2); Absolute Eosinophils 0.1 10^3/uL (0-0.7); Absolute Immature Granulocytes 0.1 10^3/uL (0-0.05); Absolute Neutrophils 10.3 10^3/uL (1.4-6.5); Hematocrit 36.3 % (37.0-47.0); Hemoglobin 11.9 g/dL (12.0-16.0); Mean Corp Hgb Conc. 32.8 g/dL (33.0-37.0); Mean Corpuscular Hgb 28.7 pg (27.0-31.0); Mean Corpuscular Volume 87.5 fL (81.0-99.0); Nucleated Red Blood Cells % 0 %; Red Blood Cell Count 4.15 10^6/uL (4.20-5.40); Red Cell Dist. Width 14.9 % (11.5-14.5); White Blood Cell Count 13.6 10^3/uL (4.8-10.8)
[2023-12-13 08:09] VITALS: BP 110/77
[2023-12-13 08:15] LABS: Blood Urea Nitrogen 17 mg/dl (7-17); Calcium 9.8 mg/dl (8.4-10.2); Carbon Dioxide 20 mmol/L (22-30); Chloride 110 mmol/L (98-107); Estimated Creatinine Clearance > 125 ml/min; Glucose 83 mg/dl (70-99); Magnesium 2.3 mg/dl (1.6-2.3); Potassium 4.5 mmol/L (3.5-5.1); Sodium 142 mmol/L (135-145); eGFR > 60.00
--- NOTE | 2023-12-13 08:58 | W.PN.HOSP.TC ---
Today's Communication/Plan
-
see AP
Assessment / Plan
Assessment / Plan
HPI: 23 y/o F, hx of breast reduction ([place], Dr. Leonard, Plastics) in October 2023 presented to ER for fever, headaches. 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 Patient was seen by surgeon the
week prior and everything was normal then. She reported a fever of 102F. She reported urinary frequency but does not recall pain or cloudy appearance.
Regarding breast redness, she recently started topical clindamycin (obtained in [place]) for what family thought was a slight crack near the R nipple. Redness started last evening and progressed. Not itching. No breast pain/swelling. No drainage.
ER spoke to Dr. Leonard and he felt less likely breast infection and more likely dermatitis from topical clindamycin; he did not prescribe it and therefore recommends stopping it.
A/P:
# Sepsis POA (leukocytosis, fever, tachycardia) with Strep bacteremia and BL breast/chest wall cellulitis
One set blood culture positive for Strep pyogenes, follow repeat blood culture until clearance
Cont IV Rocephin, Off Doxycycline
Breast US noted cellulitis/mastitis, no evidence of abscess collection.
Stopped PO prednisone
Follow urine Cx for symptom of frequency
CT A/P unrevealing, No evidence for nephroureterolithiasis or hydronephrosis.
ID on board , Wound care consulted
# bilateral breast reduction 10/[address] 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
DVT ppx: SCDs
Code: Full
DW father at bedside
Anticipated Discharge: 24 - 48 hours
Subjective/Interval History
-
Date of Service: December 13, 2023
Objective Data
-
Labs:
Laboratory Results
12/13/23
07:12
WBC 13.6 H
Hgb 11.9 L
Hct 36.3 L
Plt Count
Sodium 142
Potassium 4.5
Chloride 110 H
Carbon Dioxide 20 L
BUN 17
Creatinine 0.7
Glucose 83
Calcium 9.8
Vital Signs:
Vital Signs
Temp Pulse Resp BP Pulse Ox
36.6 C 72 19 110/77 98
12/13/23 08:09 12/13/23 08:09 12/13/23 08:09 12/13/23 08:09 12/13/23 08:09
I&O
12/12/23 12/13/23 12/14/23
06:59 06:59 06:59
Intake Total 1200 / 1200 1080 / 1080
Balance 1200 / 1200 1080 / 1080
Review of Systems
-
Skin: Reports Rash (BL breasts, rash has improved )
Physical Exam
-
General: Well Developed, Well Nourished, No Apparent Distress, Comfortable and Conversant; Negative Respiratory Distress
HEENT: Normocephalic, Atraumatic, Nose Appears Normal and Ears Appear Normal; Negative Oxygen
Respiratory: Clear to Auscultation and Non Labored Respirations; Negative Accessory Resp Muscle Use
Cardiac: Regular Rhythm and S1/S2
GI: Soft, Nontender, Nondistended and Normal Bowel Sounds
Skin: Warm, Dry and Rash (BL breasts- improving)
Neuro: Awake, Alert, Oriented and AO x 3
Psych: Calm and Intact Judgement/Insight
Data Reviewed
-
Medical Tests (Nuc Med, Echo etc): Report Reviewed by me (breast US)
Labs: Labs Reviewed by me
--- NOTE | 2023-12-13 15:07 | W.PN.ID1 ---
Date of Service
Date of Service: December 13, 2023
Today's Communication
Continue ceftriaxone.
Anticipate change to po abx. tomorrow.
Assessment / Plan
# Chest cellulitis improving
# Group A streptococcus bacteremia (1 of 1 set bcx) - suspect Strep
# Sepsis with fever, leukocytosis - resolving
# Recent b/l breast reduction 10/05/2023
# Recent boa constrictor snake contact ([facility]
- Follow repeat blood cx's.
- Continue with ceftriaxone (d3)
- Trend temps/wbc.
Chief Complaint
-: Cellulitis and Bacteremia
Subjective / Review of Systems
Feeling better.
Vital Signs / Physical Exam
Vital Signs
Vital Signs
Temp Pulse Resp BP Pulse Ox
97.8 F 72 19 110/77 98
12/13/23 08:09 12/13/23 08:09 12/13/23 08:09 12/13/23 08:09 12/13/23 08:09
Physical Exam
Constitutional: No Acute Distress and Comfortable
Skin: Other (Chest wall/upper abd erythema decreased; right torso erythema resolved)
Neurological: AO x 3
Objective Data
Lab Data
Lab Results
12/13/23 07:12
12/13/23 07:12
Estimated Creat Clear > 125 ml/min 12/13/23 07:12
Lactic Acid 0.9 mmol/L (0.7-2.0) 12/11/23 14:31
Total Bilirubin 0.5 mg/dl (0.2-1.3) 12/11/23 14:31
AST 30 U/L (14-36) 12/11/23 14:31
ALT 28 U/L (0-35) 12/11/23 14:31
Alkaline Phosphatase 109 U/L (38-126) 12/11/23 14:31
Most recent labs reviewed.
Micro Results:
12/11/23 17:10 Urine Culture - Final
Urine Streptococcus pyogenes
12/12/23 11:15 Blood Culture - Preliminary
Blood/Venous No Growth in 24 hours- Final report to follow
12/12/23 12:00 Salmonella/Shigella Culture - Preliminary
Feces/Stool Culture in Progress
Campylobacter Culture - Preliminary
Culture in Progress
Shiga Toxin Test - Pending
12/13/23 08:37 Blood Culture - Pending
Blood/Venous
12/11/23 14:31 Blood Culture - Preliminary
Blood/Venous Streptococcus pyogenes
Gram Stain - Final
12/11/23 15:24 Influenza Types A & B (GUALBERTO) - Final
Nasal Swab Negative for Influenza A & B, NAAT
Negative results must be combined with clinical observations
and patient history.
Nucleic Acid Amplification test (NAAT)performed on the
[employer] platform.
12/12/23 CT a/p: No CT evidence for nephroureterolithiasis or hydronephrosis.
12/12/23 Breast US: Findings are consistent with cellulitis/mastitis. There is no evidence of an abscess collection.
[2023-12-13 15:45] VITALS: BP 118/69
[2023-12-13] MEDS: ROCEPHIN 2000 MG IV (17:41)
[2023-12-13] MEDS: STERILE WATER FOR INJECTION 20 ML IV (17:41)
--- NOTE | 2023-12-13 20:00 | PTCARENOTE ---
Pt complaining of IV. Pt states the IV is hurting and is red. Pt wants IV removed. Pt educated on the importance of the IV as well as the antibiotics she is getting. Pt states she is going home tomorrow and will not need the IV. IV removed by this
nurse. Will monitor.
[2023-12-13] MEDS: BENADRYL 25 MG PO (20:09)
[2023-12-13] MEDS: ABILIFY 15 MG PO (20:46)
[2023-12-13] MEDS: TYLENOL 650 MG PO (22:13)
[2023-12-13 23:19] VITALS: BP 115/76
[2023-12-14 07:43] LABS: % Basophils 0.5 % (0-2); % Eosinophils 1.4 % (0-6); % Immature Granulocytes 1.2 % (0-0.5); % Lymphocytes 37.6 % (20.5-51.1); % Monocytes 7.1 % (1.7-9.3); % Neutrophils 52.2 % (42.2-75.2); Absolute Eosinophils 0.1 10^3/uL (0-0.7); Absolute Immature Granulocytes 0.1 10^3/uL (0-0.05); Absolute Lymphocytes 2.5 10^3/uL (1.2-3.4); Absolute Monocytes 0.5 10^3/uL (0.1-0.6); Absolute Neutrophils 3.5 10^3/uL (1.4-6.5); Hematocrit 39.3 % (37.0-47.0); Hemoglobin 12.7 g/dL (12.0-16.0); Mean Corp Hgb Conc. 32.3 g/dL (33.0-37.0); Mean Corpuscular Hgb 28.5 pg (27.0-31.0); Mean Corpuscular Volume 88.3 fL (81.0-99.0); Nucleated Red Blood Cells % 0 %; Platelet Count 391 10^3/uL (130-400); Red Blood Cell Count 4.45 10^6/uL (4.20-5.40); Red Cell Dist. Width 15.1 % (11.5-14.5); White Blood Cell Count 6.7 10^3/uL (4.8-10.8)
[2023-12-14 08:12] VITALS: BP 129/69
[2023-12-14 08:14] LABS: Blood Urea Nitrogen 24 mg/dl (7-17); Calcium 9.6 mg/dl (8.4-10.2); Carbon Dioxide 21 mmol/L (22-30); Chloride 108 mmol/L (98-107); Estimated Creatinine Clearance 111 ml/min; Glucose 84 mg/dl (70-99); Potassium 4.7 mmol/L (3.5-5.1); Sodium 142 mmol/L (135-145); eGFR > 60.00
--- NOTE | 2023-12-14 09:57 | W.PN.HOSP.TC ---
Addendum entered and electronically signed by Jyoti Manriquez MD 12/14/23 14:04:
total DC time 35 min
Original Note:
Today's Communication/Plan
-
DC today
Assessment / Plan
Assessment / Plan
HPI: 23 y/o F, hx of breast reduction (Dr. Aisha Silva, Plastics) in October 2023 presented to ER for fever, headaches. Symptoms began the evening [employer], associated with sore throat and redness across the breast. Patient was seen by surgeon the
week prior and everything was normal then. She reported a fever of 102F. She reported urinary frequency but does not recall pain or cloudy appearance.
Regarding breast redness, she recently started topical clindamycin (obtained in [place]) for what family thought was a slight crack near the R nipple. Redness started last evening and progressed. Not itching. No breast pain/swelling. No drainage.
ER spoke to Dr. Leonard and he felt less likely breast infection and more likely dermatitis from topical clindamycin; he did not prescribe it and therefore recommends stopping it.
A/P:
# Sepsis POA (leukocytosis, fever, tachycardia) with Strep bacteremia, BL breast/chest wall cellulitis and UTI with strep
One set blood culture positive for Strep pyogenes, repeat blood culture negative
IV Rocephin -> Amoxicillin g TID for 14 days total
Off Doxycycline
Breast US noted cellulitis/mastitis, no evidence of abscess collection.
urine Cx also with strep pyogenes
CT A/P unrevealing, No evidence for nephroureterolithiasis or hydronephrosis.
ID on board , Wound care consulted
# bilateral breast reduction 10/[address] Leonard, exam 1 week [employer] was normal
DVT ppx: SCDs
Code: Full
DW ID
DW father at bedside
Anticipated Discharge: Today
Subjective/Interval History
-
Date of Service: December 14, 2023
Objective Data
-
Labs:
Laboratory Results
12/14/23
07:18
WBC 6.7
Hgb 12.7
Hct 39.3
Plt Count 391
Sodium 142
Potassium 4.7
Chloride 108 H
Carbon Dioxide 21 L
BUN 24 H
Creatinine 0.8
Glucose 84
Calcium 9.6
Vital Signs:
Vital Signs
Temp Pulse Resp BP Pulse Ox
36.4 C 93 21 129/69 100
12/14/23 08:12 12/14/23 08:12 12/14/23 08:12 12/14/23 08:12 12/14/23 08:12
I&O
12/13/23 12/14/23 12/15/23
06:59 06:59 06:59
Intake Total 1080 / 1080 1040 / 1040
Balance 1080 / 1080 1040 / 1040
Review of Systems
-
Skin: Reports Rash (BL breasts, rash has improved )
Physical Exam
-
General: Well Developed, Well Nourished, No Apparent Distress, Comfortable and Conversant; Negative Respiratory Distress
HEENT: Normocephalic, Atraumatic, Nose Appears Normal and Ears Appear Normal; Negative Oxygen
Respiratory: Clear to Auscultation and Non Labored Respirations; Negative Accessory Resp Muscle Use
Cardiac: Regular Rhythm and S1/S2
GI: Soft, Nontender, Nondistended and Normal Bowel Sounds
Skin: Warm, Dry and Rash (BL breasts- improving)
Neuro: Awake, Alert, Oriented and AO x 3
Psych: Calm and Intact Judgement/Insight
Data Reviewed
-
Medical Tests (Nuc Med, Echo etc): Report Reviewed by me (breast US)
Labs: Labs Reviewed by me
--- NOTE | 2023-12-14 10:25 | W.PN.ID1 ---
Date of Service
Date of Service: December 14, 2023
Today's Communication
Transition ceftriaxone (d4) to amoxicillin 1g po tid through 12/24/23
Assessment / Plan
# Chest cellulitis improving
# Group A streptococcus bacteremia (1 of 1 set bcx) - suspect Strep
# Sepsis with fever, leukocytosis - resolved
# Recent b/l breast reduction 10/05/2023
# Recent boa constrictor snake contact (photo opportunity in [facility]
- repeat blood cx's negative.
- Transition ceftriaxone (d4) to amoxicillin 1g po tid through 12/24/23
Chief Complaint
-: Cellulitis and Bacteremia
Subjective / Review of Systems
Continues to feel better.
Vital Signs / Physical Exam
Vital Signs
Vital Signs
Temp Pulse Resp BP Pulse Ox
97.5 F 93 21 129/69 100
12/14/23 08:12 12/14/23 08:12 12/14/23 08:12 12/14/23 08:12 12/14/23 08:12
Physical Exam
Constitutional: No Acute Distress
Cardiovascular: Regular Rate and S1/S2
Genito-Urinary: Negative CVA Tenderness
Skin: Other (Chest wall erythema resolving)
Neurological: AO x 3
Objective Data
Lab Data
Lab Results
12/14/23 07:18
12/14/23 07:18
Estimated Creat Clear 111 ml/min 12/14/23 07:18
Lactic Acid 0.9 mmol/L (0.7-2.0) 12/11/23 14:31
Total Bilirubin 0.5 mg/dl (0.2-1.3) 12/11/23 14:31
AST 30 U/L (14-36) 12/11/23 14:31
ALT 28 U/L (0-35) 12/11/23 14:31
Alkaline Phosphatase 109 U/L (38-126) 12/11/23 14:31
Most recent labs reviewed.
Micro Results:
12/12/23 12:00 Salmonella/Shigella Culture - Final
Feces/Stool No Salmonella, Shigella, Aeromonas or Plesiomonas species
isolated.
Campylobacter Culture - Final
No Campylobacter species isolated.
Shiga Toxin Test - Pending
12/13/23 08:37 Blood Culture - Preliminary
Blood/Venous No Growth in 24 hours- Final report to follow
12/11/23 17:10 Urine Culture - Final
Urine Streptococcus pyogenes
12/12/23 11:15 Blood Culture - Preliminary
Blood/Venous No Growth in 24 hours- Final report to follow
12/11/23 14:31 Blood Culture - Preliminary
Blood/Venous Streptococcus pyogenes
Gram Stain - Final
12/11/23 15:24 Influenza Types A & B (GUALBERTO) - Final
Nasal Swab Negative for Influenza A & B, NAAT
Negative results must be combined with clinical observations
and patient history.
Nucleic Acid Amplification test (NAAT)performed on the
[employer] platform.
12/12/23 CT a/p: No CT evidence for nephroureterolithiasis or hydronephrosis.
12/12/23 Breast US: Findings are consistent with cellulitis/mastitis. There is no evidence of an abscess collection.
Care Review
Plan reviewed with: Physician (Dr. Manriquez)
--- NOTE | 2023-12-14 11:32 | CM ---
Discharge to home; no needs
--- NOTE | 2023-12-14 12:53 | W.DCSUMMARY ---
Discharge Summary
Discharge Data
Date of Admission: 12/11/23
Date of Discharge: 12/14/23
-
Pending Results: No
Hospital Course
Principal Diagnosis:
Sepsis with Strep bacteremia from likely bilateral breast/chest wall cellulitis and urinary tract infection
Chronic Diagnoses:�
Bilateral breast reduction 10/[address] Leonard
Consultations:�
Infectious disease
Procedures:�
None
Clinical course:�
This is a 23 year old female with past medical history as stated above, who presented with fever and bilateral breast erythema.
Problem 1:
Sepsis with Strep bacteremia from likely bilateral breast/chest wall cellulitis and urinary tract infection.
1 set of her blood culture was positive for strep pyogenes. Repeat blood cultures were negative.
The patient received IV Rocephin during her hospital stay, and was discharged with Amoxicillin 1 g TID for 14 days total.
Her breast ultrasound noted cellulitis/mastitis, and no evidence of abscess/collection.
Her urine culture was also positive for strep pyogenes.
Her CT A/P was unrevealing, showed no evidence for nephroureterolithiasis or hydronephrosis.
As for the rest of her medical problems, they were stable during her hospital stay.
Discharge Plan
-
Patient Disposition: Home (Routine Discharge)
Discharge Diagnosis/Procedures: Sepsis due to Strep bacteremia, bilateral breast/chest wall cellulitis and strep urinary tract infection
Condition: Good
Diet: As tolerated
Activity: As tolerated
Driving Restrictions: As prior to admission
Referrals:
Evon Black CRNP [Family Provider] - in less than 1 week
Additional Discharge Medication Instructions: Continue Amoxicillin g three times a day for 11 more days total
Prescriptions:
New
amoxicillin 500 mg tablet
1,000 mg PO Q8H 10 Days Qty: 60 0RF
Continued
acetaminophen [Tylenol Extra Strength] 500 mg Tablet
1,000 mg PO BIDPRN PRN (Reason: mild pain/fever)
ferrous sulfate 325 mg (65 mg iron) Tablet
325 mg PO MOWEFR@0800
aripiprazole 15 mg Tablet
15 mg PO HS
Discharge Orders:
Discharge Patient (As Directed); Ordered 12/14/23
Ordered By: Jyoti Manriquez
Discharge Date and Time
Discharge Date/Time: 12/14/23 10:39
Print Language: BELIZEAN
== END 2023-12-14 10:39 | disposition home or self-care (01) | DRG 872 ==
LOC: 4 WEST ACU 19:27
PROVIDERS: ADMITTING PHYSICIAN Internal Medicine; ATTENDING PHYSICIAN Internal Medicine; CONSULT PHYSICIAN Internal Medicine Infectious Disease; EMERGENCY PHYSICIAN Emergency Medicine; FAMILY PHYSICIAN Nurse Practitioner Family
DX: A40.9 Streptococcal sepsis, unspecified (principal); N39.0 Urinary tract infection, site not specified; L03.313 Cellulitis of chest wall; L25.1 Unspecified contact dermatitis due to drugs in contact with skin; N61.0 Mastitis without abscess; T49.0X5A Adverse effect of local antifungal, anti-infective and anti-inflammatory drugs, initial encounter; Y92.9 Unspecified place or not applicable; Z11.52 Encounter for screening for COVID-19
CPT/HCPCS: 74176; 76642; 80048; 80053; 81003; 81015; 83605; 83735; 84703; 85025; 87040; 87045; 87046; 87077; 87086; 87147; 87205; 87427; 87502; 87811; 96361; 96374; 96375; 99285; 99406